=== PATIENT | female | born 1955 | race Two or more races ===

== ENCOUNTER 2020-06-02 14:19 | Outpatient (CLI) | payer OTHER | END 2020-06-06 14:33 | disposition home or self-care (01) | LOC: RAD 14:19 | PROVIDERS: ATTEND Surgery | DX: K59.09 Other constipation (principal); Z86.010 Personal history of colon polyps; Z80.0 Family history of malignant neoplasm of digestive organs | CPT/HCPCS: 74018; 78266; A4641 ==

== ENCOUNTER 2020-06-28 09:25 | Outpatient (CLI) | payer OTHER | END 2020-06-28 15:00 | disposition home or self-care (01) | LOC: LAB 09:25 | PROVIDERS: ATTEND Surgery | DX: K59.09 Other constipation (principal); Z86.010 Personal history of colon polyps; Z80.0 Family history of malignant neoplasm of digestive organs ==

== ENCOUNTER 2020-07-10 07:22 | Day surgery (SDC) | payer OTHER | END 2020-07-10 12:55 | disposition home or self-care (01) | LOC: AMB-ENDOS 07:22 | PROVIDERS: ATTEND Surgery | DX: D12.3 Benign neoplasm of transverse colon (principal); Z20.828 Contact with and (suspected) exposure to other viral communicable diseases ==

== ENCOUNTER 2020-08-18 09:30 | Inpatient (IN) | payer OTHER ==
[~2020-08-18] VITALS: Ht 162.6 cm; Wt 63.5 kg
[2020-08-18] MEDS ORDERED: CARVEDILOL12.5 MG (13:09)
[2020-08-18] MEDS ORDERED: ALTACE10 MG PO (13:09)
[2020-08-18] MEDS ORDERED: CRESTOR20 MG PO (13:10)
[2020-08-18] MEDS ORDERED: CHILDREN'S ASPI81 MG PO (13:10)
[2020-08-18] MEDS ORDERED: CLONAZEPAM2 M1 PO (13:10)
[2020-09-01] MEDS ORDERED: CONSTULOSE10 GM/15 M PO (16:08)
== END 2020-09-01 17:45 | disposition home or self-care (01) | DRG 331 ==
LOC: SURH 08-25 09:30 → EDSTATUS 08-25 09:30 → O/R 08-25 10:15 → SURG 08-25 10:15 → SURH 08-25 14:00 → SURG 08-25 21:54 → SURH 08-29 19:10
PROVIDERS: ADMIT Surgery; ATTEND Surgery
PROC: 0DBN4ZZ Excision of Sigmoid Colon, Percutaneous Endoscopic Approach (ICD-10-PCS; 2020-08-25)
PROC: 4A1BXSH Monitoring of Gastrointestinal Vascular Perfusion using Indocyanine Green Dye, External Approach (ICD-10-PCS; 2020-08-25)
PROC: 0DJD8ZZ Inspection of Lower Intestinal Tract, Via Natural or Artificial Opening Endoscopic (ICD-10-PCS; 2020-08-25)
PROC: 0DTP4ZZ Resection of Rectum, Percutaneous Endoscopic Approach (ICD-10-PCS; principal; 2020-08-25 14:00)
DX: K56.51 Intestinal adhesions [bands], with partial obstruction (principal); D64.9 Anemia, unspecified; K57.30 Diverticulosis of large intestine without perforation or abscess without bleeding